=== PATIENT | female | born 2000 | race African-American/Black ===

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

== ENCOUNTER 2018-02-05 22:19 | Emergency (ER) | payer OTHER ==
[~2018-02-05] VITALS: Ht 162.6 cm; Wt 77.3 kg
[2018-02-05 22:23] VITALS: BP 150/93
[2018-02-05] MEDS ORDERED: ACET-784 PO (22:25)
== END 2018-02-05 23:30 | disposition left against medical advice (07) ==
LOC: EMS 22:20
DX: H57.89 Other specified disorders of eye and adnexa (principal); Z53.21 Procedure and treatment not carried out due to patient leaving prior to being seen by health care provider
CPT/HCPCS: 99173